=== PATIENT | female | born 1995 | race Caucasian/White ===

== ENCOUNTER → 2018-05-23 | Outpatient (REF) | payer OTHER ==
[~2018-05-23] MED LIST: BIRTH CONTROL; ESCI20TA38 PO
== END ==
LOC: ZZSENDIN 12:00
PROVIDERS: ATTEND Orthopaedic Surgery Hand Surgery
DX: T84.84XA Pain due to internal orthopedic prosthetic devices, implants and grafts, initial encounter (principal)
CPT/HCPCS: 88305

== ENCOUNTER → 2018-05-24 | Outpatient (REF) | payer OTHER | LOC: ZZSENDIN 10:07 | PROVIDERS: ATTEND Orthopaedic Surgery Hand Surgery | DX: T84.84XA Pain due to internal orthopedic prosthetic devices, implants and grafts, initial encounter (principal) | CPT/HCPCS: 87070; 87073; 87077; 87186 ==

== ENCOUNTER → 2018-06-02 | Outpatient (CLI) | payer OTHER ==
[~2018-06-02] MED LIST changes: +NS(*) 0.9% 10 ML VIAL 0 ML ONE
--- NOTE | 2018-06-02 17:14 | RADIOLOGY IMAGING REPORT ---
FACILITY: [facility] PATIENT NAME: Jeannie Hernandez : 1995 MR: [id number] V: [id number] EXAM DATE: ORDERING PHYSICIAN: YOU SORTO TECHNOLOGIST: Location: [facility] - [place], [place] Patient: Jeannie Hernandez : 1995 Visit/Account:[id number] Date of Sevice: 06/02/2018 ADDENDUM #1 The sonographic images were saved to PACS Report Dictated By: Mary Jo Lindsay MD at 06/02/2018 5:14 PM Report E-Signed By: Mary Jo Lindsay MD at 06/02/2018 5:15 PM ORIGINAL REPORT Exam type: PICC LINE INSERTION, PICC LINE PLACEMENT History: Infection in foot, need for long-term IV antibiotics Comparison: None. Findings: Informed consent was obtained. Patient's left arm was prepped and draped usual sterile fashion. Loc al anesthesia was accomplished with 1% lidocaine. Utilizing both sonographic and fluoroscopic guidan ce a 35 cm long trimmed 4 [place] single lumen power PICC was inserted via the patent left basilic vei n with the distal tip resting at the cavoatrial junction. The power PICC was flushed with 5 mL of sa line flush the proximal portion PICC line was adhered the patient's arm with a sterile dressing. The procedure was accomplished without apparent complication. The fluoroscopy dose area product was 40. 64 micro-Collazo per meter squared. IMPRESSION: 1. Successful placement of a 35 cm long trimmed 4 [place] single lumen power PICC inserted via the pa tent left basilic vein with the distal tip resting at the caval atrial junction Report Dictated By: Mary Jo Lindsay MD at 06/02/2018 5:07 PM Report E-Signed By: Mary Jo Lindsay MD at 06/02/2018 5:10 PM WSN:[email or web address]
--- NOTE | 2018-06-02 17:14 | RADIOLOGY IMAGING REPORT ---
FACILITY: [facility] - [place] PATIENT NAME: Jeannie Hernandez : 1995 MR: [id number] V: [id number] EXAM DATE: ORDERING PHYSICIAN: YOU SORTO TECHNOLOGIST: Location: [facility] - [place] Patient: Jeannie Hernandez : 1995 Visit/Account:[id number] Date of Sevice: 06/02/2018 ADDENDUM #1 The sonographic images were saved to PACS Report Dictated By: Mary Jo Lindsay MD at 06/02/2018 5:14 PM Report E-Signed By: Mary Jo Lindsay MD at 06/02/2018 5:15 PM ORIGINAL REPORT Exam type: PICC LINE INSERTION, PICC LINE PLACEMENT History: Infection in foot, need for long-term IV antibiotics Comparison: None. Findings: Informed consent was obtained. Patient's left arm was prepped and draped usual sterile fashion. Loc al anesthesia was accomplished with 1% lidocaine. Utilizing both sonographic and fluoroscopic guidan ce a 35 cm long trimmed 4 [place] single lumen power PICC was inserted via the patent left basilic vei n with the distal tip resting at the cavoatrial junction. The power PICC was flushed with 5 mL of sa line flush the proximal portion PICC line was adhered the patient's arm with a sterile dressing. The procedure was accomplished without apparent complication. The fluoroscopy dose area product was 40. 64 micro-Collazo per meter squared. IMPRESSION: 1. Successful placement of a 35 cm long trimmed 4 [place] single lumen power PICC inserted via the pa tent left basilic vein with the distal tip resting at the caval atrial junction Report Dictated By: Mary Jo Lindsay MD at 06/02/2018 5:07 PM Report E-Signed By: Mary oJ Lindsay MD at 06/02/2018 5:10 PM WSN:[email or web address]
== END ==
LOC: RAD 01:14
PROVIDERS: ATTEND Orthopaedic Surgery Hand Surgery
DX: Z45.2 Encounter for adjustment and management of vascular access device (principal); L03.115 Cellulitis of right lower limb
CPT/HCPCS: 36569; 76937; C1751

== ENCOUNTER 2018-07-01 16:00 | Outpatient (RCR) | payer OTHER ==
[2018-06-02 16:10] VITALS: BP 100/64
[2018-06-02 16:25] LABS: PLATELET COUNT, AUTOMATED 297 K/uL (150-450)
[2018-06-03 14:09] VITALS: BP 114/71
[2018-06-17 16:30] LABS: PLATELET COUNT, AUTOMATED 217 K/uL (150-450)
[2018-06-23 16:10] VITALS: BP 107/63
[2018-06-23 16:43] LABS: PLATELET COUNT, AUTOMATED 248 K/uL (150-450)
[~2018-07-01 16:00] MED LIST changes: +ALTEPLASE RECOMB 2 MG VIAL IVP PRN; +DAPTOMYCIN IVPB ONE; +DAPTOMYCIN IVPB PRN; +DEXTROSE 5%(*) 100 ML BAG 100 ML IVPB PRN; -NS(*) 0.9% 10 ML VIAL 0 ML ONE; +NS(*) 0.9% 100 ML BAG 100 ML IVPB PRN; +NS(*) 0.9% 500 ML BAG 500 ML IV PRN; +SODIUM CHLORIDE 0.9% IVPB ONE; +SODIUM CHLORIDE 0.9% IVPB PRN; +WATER FOR INJ,STERILE 20 ML IVP PRN
[2018-07-01 16:26] VITALS: BP 109/78
[2018-07-01 16:29] LABS: PLATELET COUNT, AUTOMATED 263 K/uL (150-450)
[2018-07-08 09:47] LABS: PLATELET COUNT, AUTOMATED 263 K/uL (150-450)
== END 2018-08-12 16:31 | disposition home or self-care (01) ==
LOC: SPU 16:00
PROVIDERS: ATTEND Orthopaedic Surgery Hand Surgery
DX: M01.X71 Direct infection of right ankle and foot in infectious and parasitic diseases classified elsewhere (principal)
CPT/HCPCS: 36592; 82550; 85025; 85651; 86140; 96365; J0878; J7050; 82040; 82247; 82310; 82374; 82435; 82565; 82947; 84075; 84132; 84155; 84295; 84450; 84460; 84520

== ENCOUNTER → 2018-08-25 | Outpatient (CLI) | payer OTHER ==
[~2018-08-25] MED LIST changes: -ALTEPLASE RECOMB 2 MG VIAL IVP PRN; -DAPTOMYCIN IVPB ONE; -DAPTOMYCIN IVPB PRN; -DEXTROSE 5%(*) 100 ML BAG 100 ML IVPB PRN; -NS(*) 0.9% 100 ML BAG 100 ML IVPB PRN; -NS(*) 0.9% 500 ML BAG 500 ML IV PRN; -SODIUM CHLORIDE 0.9% IVPB ONE; -SODIUM CHLORIDE 0.9% IVPB PRN; -WATER FOR INJ,STERILE 20 ML IVP PRN
== END ==
LOC: LAB 15:53
PROVIDERS: ATTEND Physician Assistant
DX: R10.9 Unspecified abdominal pain (principal); E86.0 Dehydration; R19.7 Diarrhea, unspecified
CPT/HCPCS: 87045; 87493